=== PATIENT | female | born 1960 | race American Indian/Alaskan Native ===

== ENCOUNTER 2024-10-20 08:40 | Day surgery (SDC) | payer OTHER, SELFPAY ==
--- NOTE | 2024-10-18 07:00 | EKG_ITS ---
[facility] Test Date: 2024-10-18 Pat Name: ANURAG AUSTIN Department: Room: - Gender: Female Sole Blacker: RENETTA : 1960 Requested By: Chavez Rodrigez Order Number: [id number] Reading MD: Chavez Rodrigez Measurements Intervals [place] Rate: 63 P: 47 NC: 149 QRS: 28 QRSD: 98 T: 41 QT: 398 QTc: 410 Interpretive Statements SINUS RHYTHM INCOMPLETE RIGHT BUNDLE BRANCH BLOCK [90+ ms QRS DURATION, TERMINAL R IN V1/V2, 40+ ms S IN I/aVL/V4/V5/V6] SEPTAL MYOCARDIAL INFARCTION , OF INDETERMINATE AGE [40+ ms Q WAVE IN V1/V2] No previous ECG available for comparison /[id number]/S0/[id number]
[2024-10-18 07:25] VITALS: BMI 36.1
[2024-10-18 09:04] LABS: Alanine Aminotransferase 21 U/L (10-49); Albumin, Serum 4.3 gm/dL (3.4-4.8); Albumin/Globulin Ratio 1.9 (1.2-2.2); Alkaline Phosphatase 67 U/L (46-116); Anion Gap 7 (7-16); Aspartate Amino Transferase 20 U/L (0-34); BUN/Creatinine Ratio 16 Ratio (12-20); Bilirubin,Total 0.9 mg/dL (0.3-1.2); Blood Urea Nitrogen 11 mg/dL (9-23); Calcium 8.6 mg/dL (8.3-10.6); Calcium (Corrected) 8.6 mg/dL (8.5-10.1); Carbon Dioxide 26.6 mMol/L (20.0-31.0); Chloride 109 mMol/L (98-107); Creatinine (Component) 0.7 mg/dL (0.6-1.3); Estimated Creatinine Clearance 80.1 mL/min (>60); Globulin 2.3 gm/dL (2.3-3.5); Glucose 121 mg/dL (74-106); Osmolality,Calculated 285 (275-295); Potassium 3.9 mMol/L (3.4-5.1); Sodium 143 mMol/L (136-145); Total Protein 6.6 gm/dL (5.7-8.2); eGFR > 60 See Note
[2024-10-20] VITALS (18 sets, daily range): BP systolic 118–152; BP diastolic 50–101; PULSE 59–106; RESP 12–17; TEMP 36.3–37; O2SAT 94–100; BMI 35.9
[2024-10-20] MEDS: RINGERS LACTATED 1000 ML 1,000 ML 20 ML IV (09:13)
--- NOTE | 2024-10-20 09:15 | SUR.PREOP ---
Patient expressed gratitude for visit before their procedure.
--- NOTE | 2024-10-20 12:57 | SUR.OPER ---
Daughter (Barb) updated on case status/progress via phone by Randy Higgins RN at approx. 1255.
--- NOTE | 2024-10-20 13:31 | ESOP_ITS ---
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 The pocket extended back to the body of the incus but did not involve it. The ossicular chain was intact and mobile. The middle ear was inflamed. Mastoid was sclerotic with significant amount of disease mucosa. Horizontal canal and facial nerve are in a normal position. The facial nerve was identified with the nerve monitor. The chorda tympani nerve was identified and preserved as well. Procedure Description Indications: This is a 64-year-old female with chronic draining ear and suspected cholesteatoma with hearing loss. Treatment options were discussed the patient wished to proceed with surgery. Risk of bleeding infection hearing loss decreased sense of taste facial paralysis and need for further surgery were discussed with her. Anticipated outcomes were discussed as well with the primary goal of the surgery to be resolution of the chronic infection. Patient was marked and shaved in preoperative setting and transferred to the operative suite where she was anesthetized and intubated. Facial nerve monitoring electrodes were placed in usual fashion for the right ear. Laser protection was placed as well. Area was sterilely prepped and draped and timeout performed. Postauricular area was injected with 1% lidocaine with 1 100,000 dilution epinephrine approximately 5 cc total used. The canal was injected as well as the tragus. External canal then was irrigated with warm saline and suctioned. Posterior tympanomeatal flap was created and the ear was turned forward. The granuloma that was present was removed through the middle ear space and sent for pathologic evaluation. The tympanic membrane and retraction pocket were elevated up off of the chorda tympani nerve as well as t he incudostapedial region. Were able to elevate the pocket completely without any residual sac being left behind. The middle ear mucosa was quite thickened and it was partially vaporized with the CO2 laser at a setting of 2 W. The mobility of the ossicles were checked as well. Posterior vascular strip was then developed. This followed by a postauricular incision and a palva flap. There was no significant temporalis fascia present so this was not going to be able to used for grafting purposes. The ear was turned forward and held in place with self-retaining retractors and the vascular strip pulled through and elevated as well. Canal wall up mastoidectomy was then performed. Drilling was anterior to the sigmoid sinus and below the tegmen. Posterior canal wall was thinned. The mucosa and bone were significantly diseased as noted above. Attic region was visualized along with the horizontal canal. The attic was completely blocked with diseased mucosa. As much as possible this was removed without disturbing the body of the incus or the facial nerve. The facial nerve location was confirmed at the second genu with the nerve monitor. Was also confirmed in the mastoid segment later. Once the drilling was completed in the mastoid cavity extending down into the tip the area was irrigated with warm saline solution and suction. A small incision was made on the tragus with an 11 blade and the soft tissue elevated off of the perichondrium. 4 mm punch was then used to harvest tragal cartilage and perichondrium. This was removed. The middle ear was packed with Surgifoam dipped in Ciprodex. The graft was then placed on top of the Ciprodex posteriorly superiorly where the retraction pocket had been. Posterior tympanomeatal flap was then returned back to its normal position more Surgifoam was placed on top of that hold it in position. The ear was turned back to his normal position and sutured in place with multilayer closure using 4-0 Vicryl and Dermabond. The Dermabond was also used to close the tragal incision. More Surgifoam was placed in the external canal followed by double antibiotic ointment and then Adaptic and sterile cottonball were placed in the external meatus. Monitoring nerve electrodes were removed the patient was awakened and taken the recovery room in stable condition Anesthesia GETA Pathology / specimen Other (A middle ear mucosa. Specimen B was mastoid mucosa) Estimated Blood Loss 5 Surgeon Chavez Vasquez DO Surgical Staff Operation Date: 10/20/24 11:15 Case Staff Anesthesiologist: Bobby Velez
--- NOTE | 2024-10-20 13:34 | SUR.PHASEI ---
9967 Patient arrived to recovery resting comfortably in [facility], on oxygen 8L via oxy mask with an oral airway in place, breathing unlabored, vital signs stable, dressing intact to right ear; cotton ball to ear and behind ear; dermabond, no bleeding noted, report received from Dr. Velez and Randy LANE
[2024-10-20] MEDS: ONDANSETRON INJ 2 MG/ML INJ 2 ML 4 MG IV ×2 (13:56→16:18)
--- NOTE | 2024-10-20 14:16 | SUR.PHASEI ---
1354 Patient had an episode of emesis, yellow fluid 1356 Zofran 4mg IVP per anesthesia order, will monitor patient 1416 Medication effective, patient resting comfortably in gurney, denies nausea
--- NOTE | 2024-10-20 14:56 | SUR.PHASEI ---
1456 Patient continues to be nausea and have small epsiode of emesis, Dr. Velez notied and verbal order read-back received from Reglan 10mg IVP, will place order in EMR and administer
[2024-10-20] MEDS: METOCLOPRAMIDE INJ 5 MG/ML VIAL 2 ML 10 MG IVP (15:05)
--- NOTE | 2024-10-20 15:10 | SUR.PHASEI ---
1510 Randy RN assisted this financial writer with dressing surgical site per MD order, cotton ball to ear, telfa, gauze, kerlix roll, and fish net stocking, due to patient needing a pressure dressing and patient has a small amount of bleeding from ear, MD aware, will monitor need dressing for bleeding
[2024-10-20] MEDS: SCOPOLAMINE 1 MG TDSY TOP (16:21)
--- NOTE | 2024-10-20 19:00 | SUR.PHASEI ---
1600 Patient up in bathroom to void and get dressed, patient vomited on restroom floor, Dr. Velez notified, he states he would place orders for medication for N/V 1618 Zofran 4mg IVP administer by anesthesia for continued nausea [address] behind left ear per anesthesia order, will monitor patient 1635 Dr. Vasquez updated on patient status of continued nausea/vomiting, patient expressed she was exhausted, oxygen level decreasing to 88% when she is falling asleep and having a hard time keep her eyes open, MD ordered to monitor patient for two additional hours in PACU and allow patient to rest with oxygen and re-assess patient in two hours, call MD to follow up at 1830 1640 patient resting on oxygen 3L via nasal cannula, appear very comfortably, patients is at bedside 1715 patient sleeping comfortably 1730 oxygen therapy at 1L, oxygen saturation within normal limits while patient is sleeping 1744 oxygen therapy discontinued patient oxygen saturation is 95% on room air while sleeping 1800 patient arouse and is talking with this junior underwriter and her 1810 patient eating ice chips, with nausea at a tolerable level 1815 patient ambulated to the restroom, voided, getting dressing into her clothing 1819 patient had a small emesis 25ml, shared she felt a lot better 1830 Dr. Vasquez notified of patients status, MD stated he would call in Zofran to patients pharmacy and patient is okay to proceed with discharge 1900 Patient meets discharge criteria from recovery, awake and alert, breathing unlabored, vital signs stable, denies pain, dressing intact; no bleeding noted, per patient her pain is tolerable, discharge instructions given to patient, her and daughter, signed discharge instructions. Patient given all her belongings prior to discharge, transported via wheelchair and left in a private vehicle.
--- NOTE | 2024-10-24 13:28 | PD.ANESPROG ---
Documentation for date of: 10/24/24 POST ANESTHESIA NOTE: Patient had GETA for R tympanoplasty on 10/20/24. She did well intra-op but had PONV in PACU and was given multiple anti-emetics including Scop patch with education with family at bedside. I just called her number for follow up but no answer. Bobby Velez MD Anesthesia Progress Note Progress Note Most recent Vital Signs: Last Vital Signs Temp 97.9 F 10/20/24 18:30 Pulse 77 10/20/24 18:30 Resp 13 10/20/24 18:30 BP 137/63 H 10/20/24 18:30 Pulse Ox 97 10/20/24 18:30 O2 Flow Rate 1 10/20/24 17:34
== END 2024-10-20 19:00 | disposition home or self-care (01) ==
PROVIDERS: PCP Physician Assistant; Referring Provider Otolaryngology; Visit Provider Otolaryngology
PROC: (CPT 69502; principal; 2024-10-20 11:00)
DX: H90.A31 Mixed conductive and sensorineural hearing loss, unilateral, right ear with restricted hearing on the contralateral side (principal); H70.11 Chronic mastoiditis, right ear; H72.2X1 Other marginal perforations of tympanic membrane, right ear; H66.3X1 Other chronic suppurative otitis media, right ear; Z01.810 Encounter for preprocedural cardiovascular examination
CPT/HCPCS: 69644; 36415; 80053; 93005; A4217; A4649; J0131; J0171; J0690; J1100; J2405; J2704; J2765; J3010; J3473; J3490; J7040; J7120; A9270